=== PATIENT | male | born 1975 | race Caucasian/White ===

== ENCOUNTER → 2021-10-29 | Outpatient (CLI) | payer BC ==
[~2021-10-29] MED LIST: BAMLANIVIMAB (EUA) 700 MG, ETESEVIMAB (EUA) 1,400 MG in SODIUM CHLORIDE 0.9% 100 ML IVPB ONE; SODIUM CHLORIDE 0.9% 50 ML IVPB ONE; SODIUM CHLORIDE 0.9% 500 ML 500 ML in EMPTY BAG 1 BAG IV PRN
[2021-10-29 14:39] VITALS: RESP 16; TEMP 98.7
[2021-10-29 15:31] VITALS: BP 113/79; PULSE 94
== END ==
LOC: PROCWHC3 14:09
PROVIDERS: ATTEND Family Medicine
DX: U07.1 COVID-19 (principal); E11.9 Type 2 diabetes mellitus without complications
CPT/HCPCS: 96360; J3490; M0245

== ENCOUNTER 2021-11-03 11:27 | Emergency (ER) | payer BC ==
[2021-11-03 13:50] VITALS: TEMP 98.2
[2021-11-03] MEDS ORDERED: SODIUM CHLORIDE 0.9% 1,000 ML IV STA (14:45)
--- NOTE | 2021-11-03 15:16 | ED ---
General Adult HPI - General Chief complaint: Upper Respiratory Infection Stated complaint: covid+, headache & sore throat Time Seen by Provider: 11/03/21 13:59 Source: patient, family Mode of arrival: ambulatory Limitations: no limitations - History of Present Illness Initial comments: 46-year-old male with a past medical history of asthma presents to the emergency room for shortness of breath. Patient was diagnosed with COVID-19 12 days ago. Patient states that he seemed to get better from that but then developed a pneumonia which was diagnosed on the . Patient started azithromycin and steroids at that point. He has been taking these for the past 4 days but hasnt been getting better. Slight shortness of breath. He states he cannot get rid of his cough. He did recieve antibody infusion. Patient has no other complaints at this time including chest pain, abdominal pain, nausea or vomiting, headache, or visual changes. - Related Data Home Medications Medication Instructions Recorded Confirmed Lisinopril [Zestril] 2.5 mg PO DAILY 03/02/14 11/03/21 sitaGLIPtin PHOS/metFORMIN HCL 1 tab PO BID 03/02/14 11/03/21 [Janumet Xr 100-1,000 mg Tablet] Amoxicillin/Potassium Clav 1 tab PO BID 11/03/21 11/03/21 [Augmentin 875-125 Tablet] Ascorbic Acid [Vitamin C] 1,000 mg PO DAILY 11/03/21 11/03/21 Atomoxetine HCl 80 mg PO HS 11/03/21 11/03/21 Atorvastatin [Lipitor] 40 mg PO DAILY 11/03/21 11/03/21 Azithromycin [Zithromax Z-pack (6 See Taper PO DIRECTED 11/03/21 11/03/21 tabs)] Cholecalciferol [Vitamin D3 (25 25 mcg PO DAILY 11/03/21 11/03/21 Mcg = 1000 Iu)] Codeine Phosphate/Guaifenesin 10 ml PO Q6H PRN 11/03/21 11/03/21 [Guaifen-Codeine 100-10 mg/5 ml] Dexamethasone See Taper PO DIRECTED 11/03/21 11/03/21 Semaglutide [Ozempic] 0.5 mg SQ SA 11/03/21 11/03/21 Zinc Gluconate [Zinc] 50 mg PO DAILY 11/03/21 11/03/21 Previous Rx's Medication Instructions Recorded Codeine Phosphate/Guaifenesin 5 - 10 ml PO Q6H PRN 3 Days #120 ml 11/03/21 [Guaiatussin AC Liquid] Allergies Allergy/AdvReac Type Severity Reaction Status Date / Time No Known Allergies Allergy Verified 11/03/21 16:38 Review of Systems ROS Statement: Those systems with pertinent positive or pertinent negative responses have been documented in the HPI. ROS Other: All systems not noted in ROS Statement are negative. Past Medical History Past Medical History: Asthma, Diabetes Mellitus, Hypertension History of Any Multi-Drug Resistant Organisms: None Reported Past Surgical History: Appendectomy Past Psychological History: No Psychological Hx Reported Smoking Status: Never smoker Past Alcohol Use History: None Reported Past Drug Use History: None Reported General Exam Limitations: no limitations General appearance: alert, in no apparent distress Head exam: Present: atraumatic Eye exam: Present: normal appearance, PERRL, EOMI. Absent: scleral icterus, conjunctival injection ENT exam: Present: normal exam, mucous membranes moist Neck exam: Present: normal inspection, full ROM. Absent: tenderness Respiratory exam: Present: normal lung sounds bilaterally. Absent: respiratory distress, wheezes Cardiovascular Exam: Present: regular rate, normal rhythm, normal heart sounds GI/Abdominal exam: Present: soft, normal bowel sounds. Absent: distended, tenderness Neurological exam: Present: alert Course Vital Signs 11/03/21 13:38 Temperature 98.2 F Pulse Rate 107 H Respiratory 22 Rate Blood Pressure 112/80 O2 Sat by Pulse 98 Oximetry EKG Findings - EKG Comments: EKG Findings:: Normal sinus rhythm, ventricular rate 79, AR interval 160, QTC 438 Medical Decision Making - Medical Decision Making Vitals are stable. Patient is well-appearing. No respiratory distress. CBC is unremarkable. CMP does reveal dehydration and some hyperglycemia. Patient is diabetic and was just on steroids. D-dimer was slightly elevated therefore CTA was obtained of the chest. This showed a bilateral patchy pneumonia without evidence of pulmonary embolism. Aspect that patient's symptoms are related to a viral COVID-19 pneumonia. At this point patient is stable for outpatient management. He will return here for any worsening symptoms. - Lab Data Result diagrams: 11/03/21 14:05 11/03/21 14:05 Lab Results 11/03/21 11/03/21 11/03/21 Range/Units 14:05 14:05 14:05 WBC 10.3 (3.8-10.6) k/uL RBC 5.22 (4.30-5.90) m/uL Hgb 14.4 (13.0-17.5) gm/dL Hct 43.8 (39.0-53.0) % MCV 83.8 (80.0-100.0) fL MCH 27.5 (25.0-35.0) pg MCHC 32.9 (31.0-37.0) g/dL RDW 12.9 (11.5-15.5) % Plt Count 445 (150-450) k/uL MPV 7.4 Neutrophils % 68 % Lymphocytes % 21 % Monocytes % 8 % Eosinophils % 0 % Basophils % 0 % Neutrophils # 7.0 (1.3-7.7) k/uL Lymphocytes # 2.2 (1.0-4.8) k/uL Monocytes # 0.8 (0-1.0) k/uL Eosinophils # 0.0 (0-0.7) k/uL Basophils # 0.0 (0-0.2) k/uL PT 10.4 (9.0-12.0) sec INR 1.0 (<1.2) APTT 20.0 L (22.0-30.0) sec D-Dimer 0.97 H (<0.60) mg/L FEU Sodium 135 L (137-145) mmol/L Potassium 4.9 (3.5-5.1) mmol/L Chloride 99 (98-107) mmol/L Carbon Dioxide 29 (22-30) mmol/L Anion Gap 7 mmol/L BUN 26 H (9-20) mg/dL Creatinine 0.92 (0.66-1.25) mg/dL Est GFR (CKD-EPI)AfAm >90 (>60 ml/min/1.73 sqM) Est GFR (CKD-EPI)NonAf >90 (>60 ml/min/1.73 sqM) Glucose 342 H (74-99) mg/dL Plasma Lactic Acid Hernan (0.7-2.0) mmol/L Calcium 9.2 (8.4-10.2) mg/dL Magnesium 2.1 (1.6-2.3) mg/dL Total Bilirubin 0.8 (0.2-1.3) mg/dL AST 21 (17-59) U/L ALT 29 (4-49) U/L Alkaline Phosphatase 76 (38-126) U/L Troponin I (0.000-0.034) ng/mL Total Protein 6.7 (6.3-8.2) g/dL Albumin 3.8 (3.5-5.0) g/dL 11/03/21 11/03/21 Range/Units 14:05 14:05 WBC (3.8-10.6) k/uL RBC (4.30-5.90) m/uL Hgb (13.0-17.5) gm/dL Hct (39.0-53.0) % MCV (80.0-100.0) fL MCH (25.0-35.0) pg MCHC (31.0-37.0) g/dL RDW (11.5-15.5) % Plt Count (150-450) k/uL MPV Neutrophils % % Lymphocytes % % Monocytes % % Eosinophils % % Basophils % % Neutrophils # (1.3-7.7) k/uL Lymphocytes # (1.0-4.8) k/uL Monocytes # (0-1.0) k/uL Eosinophils # (0-0.7) k/uL Basophils # (0-0.2) k/uL PT (9.0-12.0) sec INR (<1.2) APTT (22.0-30.0) sec D-Dimer (<0.60) mg/L FEU Sodium (137-145) mmol/L Potassium (3.5-5.1) mmol/L Chloride (98-107) mmol/L Carbon Dioxide (22-30) mmol/L Anion Gap mmol/L BUN (9-20) mg/dL Creatinine (0.66-1.25) mg/dL Est GFR (CKD-EPI)AfAm (>60 ml/min/1.73 sqM) Est GFR (CKD-EPI)NonAf (>60 ml/min/1.73 sqM) Glucose (74-99) mg/dL Plasma Lactic Acid Hernan 1.5 (0.7-2.0) mmol/L Calcium (8.4-10.2) mg/dL Magnesium (1.6-2.3) mg/dL Total Bilirubin (0.2-1.3) mg/dL AST (17-59) U/L ALT (4-49) U/L Alkaline Phosphatase (38-126) U/L Troponin I <0.012 (0.000-0.034) ng/mL Total Protein (6.3-8.2) g/dL Albumin (3.5-5.0) g/dL Disposition Clinical Impression: COVID-19, Pneumonia due to COVID-19 virus Disposition: HOME SELF-CARE Condition: Good Instructions (If sedation given, give patient instructions): Coronavirus Disease 2019 (COVID-19) Additional Instructions: Please take medication as directed. Follow-up with your doctor. Return to the emergency room for any worsening symptoms. Prescriptions: Codeine Phosphate/Guaifenesin [Guaiatussin AC Liquid] 5 - 10 ml PO Q6H PRN 3 Days #120 ml PRN Reason: Cough Is patient prescribed a controlled substance at d/c from ED?: No Referrals: Leandro Rees III, MD [Primary Care Provider] - 1-2 days Time of Disposition: 17:03
[2021-11-03 15:24] LABS: Basophils % (A) 0 %; Eosinophils % (A) 0 %; HCT 43.8 % (39.0-53.0); HGB 14.4 gm/dL (13.0-17.5); Lymphocytes # (A) 2.2 k/uL (1.0-4.8); Lymphocytes % (A) 21 %; MCH 27.5 pg (25.0-35.0); MCHC 32.9 g/dL (31.0-37.0); MCV 83.8 fL (80.0-100.0); Mean Platelet Volume 7.4; Monocytes # (A) 0.8 k/uL (0-1.0); Monocytes % (A) 8 %; Neutrophils % (A) 68 %; Platelet Count 445 k/uL (150-450); RBC 5.22 m/uL (4.30-5.90); RDW 12.9 % (11.5-15.5); WBC 10.3 k/uL (3.8-10.6)
[2021-11-03 15:39] LABS: ALT 29 U/L (4-49); AST 21 U/L (17-59); African American GFR (CKD) >90 (>60 ml/min/1.73 sqM); Albumin 3.8 g/dL (3.5-5.0); Alkaline Phosphatase 76 U/L (38-126); Anion Gap 7 mmol/L; Blood Urea Nitrogen 26 mg/dL (9-20); Calcium 9.2 mg/dL (8.4-10.2); Carbon Dioxide 29 mmol/L (22-30); Chloride 99 mmol/L (98-107); Glucose 342 mg/dL (74-99); Magnesium 2.1 mg/dL (1.6-2.3); Non-African American GFR(CKD) >90 (>60 ml/min/1.73 sqM); Potassium 4.9 mmol/L (3.5-5.1); Sodium 135 mmol/L (137-145); Total Bilirubin 0.8 mg/dL (0.2-1.3); Total Protein 6.7 g/dL (6.3-8.2)
--- NOTE | 2021-11-03 15:49 | XR ---
EXAMINATION TYPE: XR chest 2V DATE OF EXAM: 11/03/2021 COMPARISON: NONE HISTORY: Cough and sore throat. COVID positive. TECHNIQUE: Frontal and lateral views of the chest are obtained. FINDINGS: Low lung volumes with some faint increased opacities in the periphery of the left lung. No pleural effusion or pneumothorax seen bilaterally. Right lung grossly clear. The cardiac silhouette size is within normal limits. The osseous structures are intact. IMPRESSION: Low lung volumes with increased opacity left mid lung periphery and left basilar region consistent with acute infiltrates.
[2021-11-03 16:00] LABS: Prothrombin Time 10.4 sec (9.0-12.0)
--- NOTE | 2021-11-03 16:51 | CT ---
EXAMINATION TYPE: CT chest angio for PE DATE OF EXAM: 11/03/2021 COMPARISON: None HISTORY: Shortness of breath, covid. CT DLP: 356.6 mGycm Automated exposure control for dose reduction was used. CONTRAST: Performed with IV Contrast, patient injected with 100 mL of Isovue 370. Images obtained from the thoracic inlet to the diaphragm with IV contrast Three-D postprocessed images. There is some patchy reticular infiltrate in the periphery of both lungs in the upper and lower lobes . There is no mediastinal adenopathy. There are no hilar masses. There is 1.5 cm right bronchial lymp h node. Thoracic aorta appears intact. There is no dissection. The ascending aorta measures 3.2 cm. There is normal contrast opacification of the pulmonary arteries. There are no filling defects. There is some patchy atelectasis at the lung bases. There is no pleural effusion. Heart size is normal. The thoracic spine is intact. There is no compression fracture. Sternum appears intact. IMPRESSION: No evidence of pulmonary embolism. Bilateral patchy pneumonia. No evidence of a suspicious pulmonary mass.
[2021-11-03 17:16] VITALS: BP 120/73; PULSE 83; RESP 18
== END 2021-11-03 17:16 | disposition home or self-care (01) ==
LOC: EC 11:27
DX: U07.1 COVID-19 (principal); J12.82 Pneumonia due to coronavirus disease 2019; E11.9 Type 2 diabetes mellitus without complications; I10 Essential (primary) hypertension; J45.909 Unspecified asthma, uncomplicated; Z79.84 Long term (current) use of oral hypoglycemic drugs; Z79.899 Other long term (current) drug therapy
CPT/HCPCS: 36415; 93005; 85379; 80053; 83605; 83735; 84484; 85025; 85610; 85730; 71046; 71275; 99285; Q9967

== ENCOUNTER → 2022-05-06 | Outpatient (CLI) | payer BC ==
--- NOTE | 2022-05-06 12:14 | FL ---
Modified barium swallow. Consistencies administered: Thin and pudding. Fluoro time: 31 seconds No images were sent to PACS. Please see speech pathology report.
== END | disposition home or self-care (01) ==
LOC: RADFLMAIN 11:30
PROVIDERS: ATTEND Otolaryngology
DX: Z03.89 Encounter for observation for other suspected diseases and conditions ruled out (principal)
CPT/HCPCS: 74230